=== PATIENT | male | born 1990 | race Caucasian/White ===

== ENCOUNTER 2020-07-06 01:38 | Emergency (ER) | payer SELFPAY ==
[2020-07-06] MEDS ORDERED: Ondansetron PF 4 MG/2 ML Vial ONE (02:17)
[2020-07-06] MEDS ORDERED: Famotidine In NaCl 20 mg/50 ml Premix Bag ONE (02:17)
[2020-07-06] MEDS ORDERED: Sodium Chloride 0.9% 1,000 ML ONE (02:17)
[2020-07-06 02:31] LABS: Hemoglobin 16.1 g/dL (14.0-18.0); Mean Corpuscular HGB CONC 33.5 g/dL (32.0-36.0); Mean Corpuscular Hemoglobin 28.8 pg (27.0-31.0); Mean Corpuscular Volume 86.1 fL (78.0-98.0); Mean Platelet Volume 13.4 fL (7.4-10.4); Platelet Count 187 thou/uL (130-400); RBC Distribution Width 11.3 % (11.5-14.5); Red Blood Cell (RBC) Count 5.58 mill/uL (4.70-6.10); White Blood Cell (WBC) Count 10.2 thou/uL (4.8-10.8)
[2020-07-06 02:38] LABS: Eosinophils 1 % (0-10); Lymphocytes 9 % (21-51); MDiff Complete? YES; Monocytes 2 % (0-10); Neutrophil 88 % (42-75); Platelet Morphology Comment Appears Adequate; RBC Morphology Normal
[2020-07-06 02:40] LABS: ALT (SGPT) 15 U/L (8-55); AST (SGOT) 17 U/L (5-34); Albumin 4.7 g/dL (3.5-5.0); Alkaline Phosphatase 85 U/L (40-110); Anion Gap 14 mmol/L (10-20); BUN (Urea Nitrogen) 16 mg/dL (8.9-20.6); Calc. Creatinine Clearance 0 mL/min (70-130); Calcium 8.9 mg/dL (7.8-10.44); Carbon Dioxide 25 mmol/L (22-29); Chloride 103 mmol/L (98-107); Globulin 2.5 g/dL (2.4-3.5); Glucose 139 mg/dL (70-105); Lipase 18 U/L (8-78); Potassium 3.7 mmol/L (3.5-5.1); Protein, Total 7.2 g/dL (6.0-8.3); Sodium 138 mmol/L (136-145)
== END 2020-07-06 03:10 | disposition home or self-care (01) ==
LOC: MADERS 01:38
DX: K29.70 Gastritis, unspecified, without bleeding (principal); F17.290 Nicotine dependence, other tobacco product, uncomplicated
CPT/HCPCS: 80053; 83690; 84484; 85025; 93005; 96374; 96375; J2405; J7050

== ENCOUNTER 2020-12-19 19:11 | Emergency (ER) | payer OTHER, SELFPAY ==
[2020-12-19] MEDS ORDERED: Proparacaine 0.5% Opth 15 ML BOT ONE (19:29)
[2020-12-19] MEDS ORDERED: Fluorescein Opthalmic Strip ONE (19:29)
[2020-12-19] MEDS ORDERED: Gentamicin 80 MG/2 ML VIAL ONE (20:34)
[2020-12-19] MEDS ORDERED: Tobramycin Sulfate 0.3% Ophth Susp 5 ml Bottle ONE (20:36)
== END 2020-12-19 20:46 | disposition home or self-care (01) ==
LOC: MADERS 19:11
DX: S05.02XA Injury of conjunctiva and corneal abrasion without foreign body, left eye, initial encounter (principal); F17.290 Nicotine dependence, other tobacco product, uncomplicated; W22.8XXA Striking against or struck by other objects, initial encounter
CPT/HCPCS: 99283; J1580

== ENCOUNTER 2022-03-05 15:54 | Emergency (ER) | payer OTHER ==
[2022-03-05] MEDS ORDERED: Ibuprofen 600 MG TAB ONE (17:11)
== END 2022-03-05 17:58 | disposition home or self-care (01) ==
LOC: MADERS 15:54
DX: J20.8 Acute bronchitis due to other specified organisms (principal); Z20.822 Contact with and (suspected) exposure to COVID-19; Z87.891 Personal history of nicotine dependence
CPT/HCPCS: 71045; 87804; U0003; U0005

== ENCOUNTER 2024-03-27 18:34 | Emergency (ER) | payer BC, SELFPAY ==
[2024-03-27] MEDS ORDERED: diphenhydrAMINE 50 MG/ML VIAL ONE (18:56)
[2024-03-27] MEDS ORDERED: Ketorolac Tromethamine 30 MG (1 mL) VIAL ONE (18:56)
[2024-03-27] MEDS ORDERED: Prochlorperazine 10 MG/2 ML VIAL ONE (18:56)
[2024-03-27] MEDS ORDERED: Magnesium 2 GM/50 ML BAG (IN WATER) ONE (19:17)
[2024-03-27] MEDS ORDERED: methylPREDNISolone Sod Succ/PF 125 MG/2 ML VIAL ONE (19:17)
[2024-03-27] MEDS ORDERED: Sodium Chloride 0.9% 1,000 ML ONE (19:18)
== END 2024-03-27 20:49 | disposition home or self-care (01) ==
LOC: MADERS 18:34
DX: R51.9 Headache, unspecified (principal); R29.700 NIHSS score 0; Z87.891 Personal history of nicotine dependence
CPT/HCPCS: 96365; 96375; J0780; J1200; J1885; J2919; J3475; J7030

== ENCOUNTER 2024-04-01 07:07 | Emergency (ER) | payer BC ==
[2024-04-01] MEDS ORDERED: Oseltamivir 75 MG CAP ONE (07:40)
[2024-04-01] MEDS ORDERED: cefTRIAXone (ROCEPHIN) 2 GM VIAL ONE (10:37)
[2024-04-01] MEDS ORDERED: Sodium Chloride 0.9% 100 ML ONE (10:37)
[2024-04-01] MEDS ORDERED: Sodium Chloride 0.9% 1,000 ML ONE (10:37)
== END 2024-04-01 07:50 | disposition home or self-care (01) ==
LOC: MADERS 07:07
DX: J11.1 Influenza due to unidentified influenza virus with other respiratory manifestations (principal); H61.23 Impacted cerumen, bilateral; F17.290 Nicotine dependence, other tobacco product, uncomplicated
CPT/HCPCS: 99283; J0696; J7030